=== PATIENT | male | born 1995 | race Caucasian/White ===

== ENCOUNTER 2016-06-17 18:29 | Emergency (ER) | payer BC ==
[2016-06-17 18:39] VITALS: BP 130/78; PULSE 94; TEMP 98.8; BMI 28.3
--- NOTE | 2016-06-17 19:37 | PDOC ---
History of Present Illness - General Chief Complaint: Laceration Stated Complaint: LACERATION Time Seen by Provider: 06/17/16 18:58 History Source: Patient Exam Limitations: No Limitations - History of Present Illness Initial Comments: 06/17/16 19:33 21 yr male playing basketball ran into the pole causing laceration to left eyebrow. No LOC no dizzyness. Past History - Past Medical History Allergies/Adverse Reactions: Allergies Allergy/AdvReac Type Severity Reaction Status Date / Time No Known Allergies Allergy Verified 06/17/16 18:30 Home Medications: Ambulatory Orders No Home Medications 0 dose .ROUTE UTDICT 08/12/12 Other medical history: DENIES. - Psycho/Social/Smoking Cessation Hx Anxiety: No Suicidal Ideation: No Smoking Status: No Smoking History: Never smoked Number of Cigarettes Smoked Daily: 0 Hx Alcohol Use: No Drug/Substance Use Hx: Yes (MARIJUANA.) Substance Use Type: Marijuana Review of Systems - Review of Systems Able to Perform ROS?: Yes Is the patient limited Lao proficient: No Constitutional: No: Symptoms Reported HEENTM: No: Symptoms Reported Respiratory: No: Symptoms reported Cardiac (ROS): No: Symptoms Reported ABD/GI: No: Symptoms Reported : No: Symptoms Reported Musculoskeletal: No: Symptoms Reported Integumentary: Yes: Symptoms Reported, See HPI *Physical Exam - Vital Signs Last Vital Signs Temp Pulse Resp BP Pulse Ox 98.8 F 94 H 18 130/78 98 06/17/16 18:29 06/17/16 18:29 06/17/16 18:29 06/17/16 18:29 06/17/16 18:29 - Physical Exam General Appearance: Yes: Nourished, Appropriately Dressed HEENT: positive: EOMI, BEATA, Normal ENT Inspection, TMs Normal, Pharynx Normal Neck: positive: Supple Respiratory/Chest: positive: Lungs Clear, Normal Breath Sounds Cardiovascular: positive: Regular Rhythm, Regular Rate Musculoskeletal: positive: Normal Inspection Extremity: positive: Normal Capillary Refill, Normal Inspection, Normal Range of Motion Integumentary: positive: Normal Color, Dry, Warm, Other (left outer eyebrow with 3.0cm laceration ) Neurologic: positive: Fully Oriented, Alert, Normal Mood/Affect, Normal Response , Motor Strength 5/5 Procedures - Laceration/Wound Repair Left Face Wound Length: 2.6 to 5.0 cm Wound Explored: clean Wound's Depth, Shape: into muscle, linear Irrigated w/ Saline: Yes Betadine Prep: Yes Anesthesia: 1% Lidocaine Amount of Anesthetic (ccs): 4 Wound Repaired With: Sutures, Steri-strips Suture Size/Type: 5:0, nylon Number of Sutures: 6 Layer Closure: No Sterile Dressing Applied: Yes Progress: 06/17/16 19:35 tolerated well edges well approximated *DC/Admit/Observation/Transfer Diagnosis at time of Disposition: Laceration - Discharge Dispostion Disposition: HOME Condition at time of disposition: Improved - Patient Instructions Printed Discharge Instructions: DI for Laceration Repair Additional Instructions: keep dry do not get wet remove bandage in 48hrs then apply a thin layer of bacitracin to the wound daily and keep covered with bandaid return in 7-9 days for suture removal (June 25 after 8am) Return sooner if any concerns, pain drainage or swelling
== END 2016-06-17 19:53 | disposition home or self-care (01) ==
LOC: JERFT 18:29 → JER 18:29 → JERFT 19:53
PROC: 0JQ10ZZ Repair Face Subcutaneous Tissue and Fascia, Open Approach (ICD-10-PCS; principal; 2016-06-17)
DX: S01.112A Laceration without foreign body of left eyelid and periocular area, initial encounter (principal); W22.8XXA Striking against or struck by other objects, initial encounter; Y93.67 Activity, basketball; Y92.310 Basketball court as the place of occurrence of the external cause; Y99.8 Other external cause status
CPT/HCPCS: 99281-25

== ENCOUNTER 2016-07-01 09:10 | Emergency (ER) | payer BC ==
[2016-07-01 09:17] VITALS: BP 125/68; PULSE 85; TEMP 98.4; BMI 28.3
--- NOTE | 2016-07-01 09:30 | PDOC ---
Suture Removal/Wound Check HPI - History of Present Illness Chief Complaint: Suture/Staple Removal(Here) Stated Complaint: STAPLE/SUTURE REMOVAL Time Seen by Provider: 07/01/16 09:23 History Source: Yes: Patient Exam Limitations: Yes: No Limitations Treated at: [facility] ED - Previous ED Treatment Type of procedure performed on last visit: Yes: Laceration Repair Tetanus Immunization: Yes: Up to Date Past History - Travel Traveled outside of the country in the last 30 days: No Close contact w/someone who was outside of country & ill: No - Past Medical History Allergies/Adverse Reactions: Allergies No Known Allergies Allergy (Verified 07/01/16 09:14) Home Medications: Ambulatory Orders No Home Medications 0 dose .ROUTE UTDICT 08/12/12 General: Yes: no pertinent history - Social History Smoking History: No Smoking Status: Never smoked Number of Ciarettes Per Day: 0 *DC/Admit/Observation/Transfer Diagnosis at time of Disposition: Encounter for removal of sutures - Discharge Dispostion Disposition: HOME Condition at time of disposition: Stable Admit: No - Patient Instructions Printed Discharge Instructions: DI for Suture Removal Additional Instructions: keep wound clean and cover with bacitracin until scabs gone
== END 2016-07-01 09:42 | disposition home or self-care (01) ==
LOC: JERFT 09:10
DX: Z48.02 Encounter for removal of sutures (principal)
CPT/HCPCS: 99281-25